=== PATIENT | male | born 1980 | race Caucasian/White ===

== ENCOUNTER → 2022-06-20 14:28 | Outpatient (CLI) | payer SELFPAY ==
[2022-06-20 16:08] LABS: Urine N gonorrhoeae NOT DETECTED
[2022-06-20 16:34] LABS: Urine Chlamydia NOT DETECTED
== END ==
PROVIDERS: Visit Provider Student in an Organized Health Care Education/Training Program
DX: R21 Rash and other nonspecific skin eruption (principal)
CPT/HCPCS: 87491; 87591